=== PATIENT | female | born 1940 | race Caucasian/White ===

== ENCOUNTER → 2017-07-24 | Outpatient (CLI) | payer MEDICARE, OTHER ==
[2016-05-22 09:52] VITALS: BMI 20.9
[~2017-07-24] MED LIST: ASPI-1471 PO; ASPI-715 PO; ATOR10TA24 PO; AZIT-1 PO; BLOO-1764 MC; CAL600 PO; CALC1TAB32 PO; CIPR-344 PO; CIT20 PO; CLO5 PO; CLON-298 PO; FAM20 PO; FLU IM; FLU180SY9 IM; FLU45SYR17 IM; FLU45SYR25 IM ONLY; FLUC150T40 PO; FUR20 PO; GABA-547 PO; GABA-549 PO; GUAI-242 PO; HUMALOG SQ; HYDR-4309 PO; HYDR28.415 TP; INSU100C10 SQ; INSU100I18 SQ; INSU100V24 SQ; LANI SC; LANI SQ; LEV500 PO; LEVE250T42 PO; LEVI SQ; LEVI SUBQ; LEVO-271 PO; LEVO-315 PO; LEVO100T95 PO; LEVO50TA86 PO; LEVO75TA68 PO; LEVO88TA45 PO; LISI2.5T60 PO; MEL3 PO; MELO-205 PO; MIR15 PO; MIRT-22 PO; MIRT7.5T2 PO; NAPR-1043 PO; NOVOLOG; NOVOLOG SQ; NPH,100V10 SQ; PAN40 PO; PHEN100 PO; PHENA200 PO; PNEU0.5D3 IM; POLY17PO25 PO; PRE10 PO; QUET25TA PO; QUET25TA31 PO; SIM10 PO; SIMV10TA98 PO; SITA100T9 PO; SODCTAB PO; SODI1TAB PO; SYRI-1525 MC; ZOST19404 SQ; [UNRECOGNIZED DRUG - CODE] PO
[2017-07-24 10:04] LABS: LDL CHOLESTEROL 72 mg/dl
== END ==
LOC: LAB 09:20
PROVIDERS: ATTEND Nurse Practitioner Family
DX: E03.9 Hypothyroidism, unspecified (principal); E11.49 Type 2 diabetes mellitus with other diabetic neurological complication; I10 Essential (primary) hypertension; E78.5 Hyperlipidemia, unspecified
CPT/HCPCS: 36415; 82040; 82247; 82310; 82374; 82435; 82465; 82565; 82947; 83036; 83718; 84075; 84132; 84155; 84295; 84450; 84460; 84478; 84520

== ENCOUNTER → 2018-02-09 | Outpatient (CLI) | payer MEDICARE, OTHER ==
[2016-05-22 09:52] VITALS: BMI 20.9
[~2018-02-09] MED LIST changes: -CLON-298 PO; +CLON-331 PO; +ESCI5TAB3 PO
== END ==
LOC: LAB 16:58
PROVIDERS: ATTEND Nurse Practitioner Family
DX: E03.9 Hypothyroidism, unspecified (principal); E11.49 Type 2 diabetes mellitus with other diabetic neurological complication; F41.1 Generalized anxiety disorder
CPT/HCPCS: 36415; 82040; 82247; 82310; 82374; 82435; 82565; 82947; 83036; 84075; 84132; 84155; 84295; 84443; 84450; 84460; 84520

== ENCOUNTER 2018-02-18 06:54 | Emergency (ER) | payer MEDICARE, OTHER ==
[2016-05-22 09:52] VITALS: Wt 61.2 kg
--- NOTE | 2018-02-18 07:34 | ER Report ---
History and Physical Time Seen By MD: 07:00 Hx. of Stated Complaint: PATIENT IS REPORTING LEFT LEG PAIN FOR THE LAST WEEK. THIS MORNING SHE REPORTS THAT THE PAIN IS MUCH WORSE THIS MORNING AND SHE CANNOT RELAX HPI/ROS This is a 77-year-old female with a long standing history of anxiety. Her son is at the bedside, and states that he is "at my wits end." He says his mom believes that she is "stiff." This causes severe anxiety, and a thought for the patient that she is unable to walk and may fall. She is followed by Rosa M Thomas. She has seen physical therapy, and has been taught to use a walker. She will not use the walker for fear of falling, so her son has obtained a wheel chair for her. There are no changes this morning when she called paramedics. No new falls and no new pain. The only discomfort she complains about is her chronic neuropathy and a mild pain in her left lower extremity where she seems to hit the area on her wheelchair. This is not the pain that brought her to the emergency department. When asked why he she came to the emergency department with this ongoing chronic issue with no changes, she states "I think I'm just really anxious." Remainder of the 14 system rev: Yes Allergies: Coded Allergies: blueberry (Verified Allergy, Intermediate, 05/20/16) Penicillins (Verified Allergy, Unknown, 05/20/16) phenytoin (Unverified Allergy, Unknown, 05/20/16) Home Meds Active Scripts Simvastatin (SIMVASTATIN) 10 Mg Tablet, 1 TAB PO QHS, #90 TAB 0 Refills Prov:ROSA M DUMAS APRN-C 02/17/18 Escitalopram Oxalate (ESCITALOPRAM OXALATE) 5 Mg Tablet, 1 TAB PO QDAY, #30 TAB 1 Refill Prov:ROSA M DUMAS APRN [employer]-C 02/09/18 Levothyroxine Sodium (LEVOTHYROXINE SODIUM) 50 Mcg Tablet, 1-2 TAB PO DAILY, #102 TAB 1 Refill Take 2 tabs on and take 1 tab all other days Prov:ROSA M DUMAS APRNP-C 12/02/17 Gabapentin (GABAPENTIN) 100 Mg Capsule, 1 CAP PO BID, #180 CAPSULE 2 Refills take one cap morning and afternoon Prov:ROSA M DUMAS APRN-C 11/05/17 Insulin Detemir (LEVEMIR) 100 Unit/Ml Injs, 8-10 UNIT SUBQ BID, #3 VIAL 5 Refills injection SQ 10 units am and 8 units pm Prov:ROSA M DUMAS APRN-C 10/23/17 Insulin Lispro 100 Un/Ml Vial (HUMALOG 100 U/ML VIAL) 100 Unit/1 Ml Vial, 2-6 UNITS SQ BIDBS, #1 VIAL 5 Refills 150-200 2 units 201-250 - 4 units 251-300- 6 units Prov:ROSA M DUMAS APRN-C 09/17/17 Gabapentin (GABAPENTIN) 300 Mg Capsule, 1 CAP PO QHS, #90 CAPSULE 3 Refills Prov:CLARK ALCANTARA MD 08/07/17 Syringe & Needle,Insulin,1 Ml (INSULIN SYRINGE) 1 Each Disp.syrin, 1 SYR MC DIRECTED, #150 0 Refills Use to inject insulin up to 5 times daily. Prov:ROSA M DUMAS APRN 05/22/17 Blood Sugar Diagnostic (FREESTYLE TEST STRIPS) 1 Each Strip, 100 EACH MC Q30D, #100 STRIP 12 Refills Use to test Blood sugars three times daily and as needed Prov:ROSA M DUMAS APRN 03/24/17 Sodium Chloride (SODIUM CHLORIDE) 1 Gm Tab, 2 TAB PO BID, #120 TAB 1 Refill Prov:ROSA M DUMAS APRN 03/19/17 Aspirin (ASPIR 81) 81 Mg Tablet.dr, 81 MG PO 3XW, #100 TAB 3 Refills Prov:CIRA COLLADO MD 09/12/14 Reported Medications Calcium Carb & Cit/Vitamin D3 (CALCIUM + D3 ER TABLET) 1 Each Tablet.er, 1 EACH PO 05/21/14 Reviewed Nurses Notes: Yes Old Medical Records Reviewed: Yes Hx Smoking: No Smoking Status: Never Smoker Exposure to Second Hand Smoke?: No Hx Substance Use Disorder: No Hx Alcohol Use: No Family History of: Diabetes Constitutional Vital Sign - Last 24 Hours 02/18/18 02/18/18 02/18/18 02/18/18 07:04 07:07 07:24 07:30 Temp 98.0 Pulse 88 78 Resp 20 B/P (MAP) 161/78 161/78 (105) 156/66 (96) Pulse Ox 90 89 O2 Delivery Room Air 02/18/18 02/18/18 07:54 08:00 Pulse 78 B/P (MAP) 156/72 (100) Pulse Ox 90 Physical Exam General Appearance: The patient is alert, has no immediate need for airway protection and no current signs of toxicity. She appears very anxious, and is moving constantly around the bed. Eyes: Pupils equal and round no injection. Respiratory: Chest is non tender, lungs are clear to auscultation. Cardiac: regular rate and rhythm Musculoskeletal: Mild TTP of the left ankle with some mild swelling and e cchymoses. No erythema or joint swelling. Full ROM in ankle/foot/knee/left hip Extremities have full range of motion Skin: No rashes or lesions other than ecchymoses. DIFFERENTIAL DIAGNOSIS: After history and physical exam differential diagnosis was considered for fracture, dislocation, cellulitis, neuropathy Medical Decision Making EKG/Imaging Imaging X-ray: left ankle was obtained. I viewed the images myself on the PACS system. My interpretation of the images is: no fracture or dislocation. The radiologist interpretation had no clinically significant variation from this interpretation. ED Course/Re-evaluation ED Course 77-year-old female with chronic swelling and ecchymosis in her left ankle secondary to hitting her left ankle on her wheelchair. The patient, her, and I had an extensive conversation about the patient's anxiety and fear of falling. I suggested that they discuss with her PCM possible placement in a retirement care facility due to the fact that the patient is debilitated by her anxiety and fear of falling. In the meantime, we placed an CHRIS wrap with padding to help with her chronic issue of banging her leg against the wheelchair. Decision to Disposition Date: Feb 18, 2018 Decision to Disposition Time: 08:33 Depart Departure Latest Vital Signs Vital Signs Date Time Temp Pulse Resp B/P (MAP) Pulse Ox O2 Delivery O2 Flow Rate FiO2 02/18/18 08:00 156/72 (100) 02/18/18 07:54 78 90 02/18/18 07:04 98.0 20 Room Air Impression: Primary Impression: PAIN IN LEFT ANKLE AND JOINTS OF LEFT FOOT Additional Impression: Anxiety Condition: Improved Disposition: HOME OR SELF-CARE Referrals: ROSA M DUMAS APRN [employer]-C (PCP) Patient Instructions: Ankle Strain (ED) Problem Qualifiers WISAM CLAYTON MD Feb 18, 2018 07:34
--- NOTE | 2018-02-18 07:57 | RADIOLOGY IMAGING REPORT ---
FACILITY: [facility] PATIENT NAME: Sonia Cooper : 1940 MR: [id number] V: [id number] EXAM DATE: ORDERING PHYSICIAN: WISAM CLAYTON TECHNOLOGIST[place] [facility] [place] : 1940 Visit/Account:[id number] Date of Sevice: 02/18/2018 ANKLE 3 VIEW MIN LEFT Left ankle pain Three-view examination FINDINGS: Generalized osteopenia. No acute bony pathology. Ankle mortise well-maintained. No joint effusion. No DJD of any significance. Small plantar spurring change noted. Hind and midfoot structures are otherwise unremarkable. IMPRESSION: 1. Negative left ankle for acute bony pathology. Report Dictated By: Eugenio Estrada MD at 02/18/2018 7:49 AM Report E-Signed By: Eugenio Estrada MD at 02/18/2018 7:53 AM WSN:[id number]
[2018-02-18 08:00] VITALS: BP 156/72
== END 2018-02-18 09:32 | disposition home or self-care (01) ==
LOC: ER 07:47
DX: M25.572 Pain in left ankle and joints of left foot (principal)
CPT/HCPCS: 99283

== ENCOUNTER → 2018-02-18 | Outpatient (CLI) | payer MEDICARE, OTHER ==
[2016-05-22 09:52] VITALS: BMI 20.9
== END ==
LOC: AMB 06:40
PROVIDERS: ATTEND Nurse Practitioner
DX: M25.552 Pain in left hip (principal); S90.02XA Contusion of left ankle, initial encounter
CPT/HCPCS: A0425; A0429

== ENCOUNTER → 2018-05-29 | Outpatient (CLI) | payer MEDICARE, OTHER ==
[2016-05-22 09:52] VITALS: BMI 20.9
[~2018-05-29] MED LIST changes: +FLU180SY11 IM; +FLU60VIA41 IM; -HYDR-4309 PO; +HYDR-653 PO
[2018-05-29 11:31] LABS: PLATELET COUNT, AUTOMATED 203 K/uL (150-450)
== END ==
LOC: LAB 10:54
PROVIDERS: ATTEND Nurse Practitioner Family
DX: E03.9 Hypothyroidism, unspecified (principal); E11.49 Type 2 diabetes mellitus with other diabetic neurological complication; I10 Essential (primary) hypertension
CPT/HCPCS: 36415; 82040; 82247; 82310; 82374; 82435; 82565; 82947; 83036; 83735; 84075; 84132; 84155; 84295; 84443; 84450; 84460; 84520; 85025

== ENCOUNTER → 2018-07-23 | Outpatient (CLI) | payer MEDICARE, OTHER ==
[2016-05-22 09:52] VITALS: BMI 20.9
[~2018-07-23] MED LIST changes: +CANA100T PO; +FLU150 PO
== END ==
LOC: LAB 11:20
PROVIDERS: ATTEND Nurse Practitioner Family
DX: N89.8 Other specified noninflammatory disorders of vagina (principal)
CPT/HCPCS: 87210

== ENCOUNTER → 2018-09-04 | Outpatient (CLI) | payer MEDICARE, OTHER ==
[2016-05-22 09:52] VITALS: BMI 20.9
== END ==
LOC: LAB 09:52
PROVIDERS: ATTEND Nurse Practitioner Family
DX: Z02.9 Encounter for administrative examinations, unspecified (principal)

== ENCOUNTER → 2018-09-29 | Outpatient (CLI) | payer MEDICARE, OTHER ==
[2016-05-22 09:52] VITALS: BMI 20.9
[2018-09-29 11:39] LABS: PLATELET COUNT, AUTOMATED 206 K/uL (150-450)
== END ==
LOC: LAB 11:30
PROVIDERS: ATTEND Nurse Practitioner Family
DX: E03.9 Hypothyroidism, unspecified (principal); E11.49 Type 2 diabetes mellitus with other diabetic neurological complication; I10 Essential (primary) hypertension
CPT/HCPCS: 36415; 82040; 82247; 82310; 82374; 82435; 82565; 82947; 83036; 84075; 84132; 84155; 84295; 84443; 84450; 84460; 84520; 85025

== ENCOUNTER → 2018-12-31 | Outpatient (CLI) | payer MEDICARE, OTHER ==
[2016-05-22 09:52] VITALS: BMI 20.9
[~2018-12-31] MED LIST changes: +METF-450 PO
[2018-12-31 12:09] LABS: PLATELET COUNT, AUTOMATED 216 K/uL (150-450)
[2018-12-31 12:50] LABS: LDL CHOLESTEROL 72 mg/dl
== END ==
LOC: LAB 11:57
PROVIDERS: ATTEND Nurse Practitioner Family
DX: E03.9 Hypothyroidism, unspecified (principal); E11.49 Type 2 diabetes mellitus with other diabetic neurological complication; I10 Essential (primary) hypertension
CPT/HCPCS: 36415; 82040; 82247; 82310; 82374; 82435; 82465; 82565; 82947; 83036; 83718; 84075; 84132; 84155; 84295; 84443; 84450; 84460; 84478; 84520; 85025

== ENCOUNTER → 2018-12-31 | Outpatient (CLI) | payer MEDICARE, OTHER ==
[2016-05-22 09:52] VITALS: BMI 20.9
== END ==
LOC: LAB 11:52
PROVIDERS: ATTEND Nurse Practitioner Family
DX: Z02.9 Encounter for administrative examinations, unspecified (principal)